=== PATIENT | female | born 1985 | race Caucasian/White ===

== ENCOUNTER → 2020-08-06 11:31 | Outpatient (BNV) | payer OTHER, SELFPAY | PROVIDERS: PCP Internal Medicine; Visit Provider Internal Medicine Medical Oncology | DX: D50.9 Iron deficiency anemia, unspecified (principal); N92.0 Excessive and frequent menstruation with regular cycle | CPT/HCPCS: 99212; 99213; 99214 ==

== ENCOUNTER 2021-04-01 10:36 | Outpatient (REF) | payer OTHER, SELFPAY ==
[2021-04-01 10:56] LABS: Hematocrit 26.7 % (37-47); Hemoglobin 7.9 g/dl (12.0-16.0); Mean Corpuscular HGB Conc 29.6 g/dl (31.0-35.0); Mean Corpuscular Hemoglobin 23.4 pg (27.0-33.0); Mean Platelet Volume 9.2 fL (9.4-12.3); Platelet Count 327 X10*3/uL (160-400); Red Blood Count 3.38 X10*6/uL (4.20-5.50); Red Cell Distribution Width 14.6 % (11.0-16.0); White Blood Count 5.7 X10*3/uL (4.8-10.8)
[2021-04-01 11:23] LABS: Alanine Aminotransferase 12 U/L (0-31); Albumin Level 4.4 g/dL (3.5-5.0); Alkaline Phosphatase 58 U/L (39-117); Anion Gap 12 (12-20); Aspartate Amino Transferase 13 U/L (5-31); Bilirubin Total 0.2 mg/dL (0.0-1.0); Blood Urea Nitrogen 10 mg/dL (9-16); Calcium 9.3 mg/dL (8.4-10.2); Carbon Dioxide 24 mmol/L (22-29); Chloride 107 mmol/L (96-108); Estimated Glomerular Filt Rate > 60; Glucose Random 91 mg/dL (60-115); Iron 11 mcg/dL (30-160); Potassium 4.1 mmol/L (3.3-5.1); Sodium 139 mmol/L (135-145); Total Protein 7.1 g/dL (6.5-8.0)
[2021-04-01 11:34] LABS: Percent Iron Saturation 3 % (15-50); Total Iron Binding Capacity 433 mcg/dL (228-428); Unsaturated Iron Binding 422 ug/dL
[2021-04-01 11:41] LABS: Ferritin < 1 ng/mL (10-122)
== END 2021-04-01 10:37 | disposition home or self-care (01) ==
LOC: HO.LAB 10:36
PROVIDERS: PCP Internal Medicine; Visit Provider Internal Medicine Medical Oncology
DX: D50.9 Iron deficiency anemia, unspecified (principal)
CPT/HCPCS: 36415; 80053; 82728; 83540; 85027

== ENCOUNTER 2021-04-12 10:47 | Outpatient (REF) | payer OTHER, SELFPAY | END 2021-04-12 10:48 | disposition home or self-care (01) | LOC: HO.MDS 10:47 | PROVIDERS: PCP Internal Medicine; Visit Provider Internal Medicine Medical Oncology | DX: D50.9 Iron deficiency anemia, unspecified (principal) | CPT/HCPCS: 96365; J2916; Q0163 ==

== ENCOUNTER 2021-04-12 13:27 | Emergency (ER) | payer OTHER, SELFPAY | END 2021-04-12 18:34 | disposition left against medical advice (07) | PROVIDERS: Emergency Provider Emergency Medicine | DX: M79.604 Pain in right leg (principal); M79.605 Pain in left leg; M79.642 Pain in left hand; M79.641 Pain in right hand ==

== ENCOUNTER 2021-04-28 | Outpatient (REF) | payer OTHER, SELFPAY | END 2021-04-28 00:01 | disposition home or self-care (01) | LOC: HO.MDS | PROVIDERS: Visit Provider Internal Medicine Medical Oncology | DX: Z53.09 Procedure and treatment not carried out because of other contraindication (principal); D50.9 Iron deficiency anemia, unspecified | CPT/HCPCS: J1439 ==

== ENCOUNTER 2021-05-24 07:57 | Outpatient (REF) | payer OTHER, SELFPAY | END 2021-05-24 07:58 | disposition home or self-care (01) | LOC: HO.MDS 07:57 | PROVIDERS: Visit Provider Internal Medicine Medical Oncology | DX: D50.9 Iron deficiency anemia, unspecified (principal) | CPT/HCPCS: 96365; 96366; J1200; J1750; Q0163 ==

== ENCOUNTER 2022-11-29 12:24 | Outpatient (REF) | payer OTHER, SELFPAY | END 2022-11-29 12:25 | disposition home or self-care (01) | LOC: HO.MDS 12:24 | PROVIDERS: PCP Internal Medicine; Visit Provider Internal Medicine Medical Oncology | DX: D50.9 Iron deficiency anemia, unspecified (principal) | CPT/HCPCS: 96365; J1756 ==

== ENCOUNTER 2022-12-06 10:11 | Outpatient (REF) | payer OTHER, SELFPAY | END 2022-12-06 10:12 | disposition home or self-care (01) | LOC: HO.MDS 10:11 | PROVIDERS: Visit Provider Internal Medicine Medical Oncology | DX: D50.9 Iron deficiency anemia, unspecified (principal) | CPT/HCPCS: 96365; J1756 ==

== ENCOUNTER 2022-12-13 09:26 | Outpatient (REF) | payer OTHER, SELFPAY | END 2022-12-13 09:27 | disposition home or self-care (01) | LOC: HO.MDS 09:26 | PROVIDERS: Visit Provider Internal Medicine Medical Oncology | DX: D50.9 Iron deficiency anemia, unspecified (principal) | CPT/HCPCS: 96365; J1756 ==

== ENCOUNTER 2022-12-20 08:59 | Outpatient (REF) | payer OTHER, SELFPAY ==
[2022-12-20 09:47] LABS: MANUAL DIFF FLAG NO
[2022-12-20 09:48] LABS: Basophils Absolute Auto 0.1 X10*3/uL (0.0-0.2); Basophils Percent Auto 0.8 % (0-2); Eosinophils Absolute Auto 0.2 X10*3/uL (0.0-0.4); Eosinophils Percent Auto 2.5 % (0-4); Hematocrit 34.5 % (37.0-47.0); Hemoglobin 10.8 g/dl (12.0-16.0); Imm Gran Abs Auto 0.02 X10*3/uL (0.00-0.03); Imm Gran Pct Auto 0.3 % (0.0-0.4); Lymphocytes Absolute Auto 1.5 X10*3/uL (1.2-4.9); Lymphocytes Percent Auto 25.5 % (20-40); Mean Corpuscular HGB Conc 31.3 g/dl (31.0-35.0); Mean Corpuscular Hemoglobin 25.5 pg (27.0-33.0); Mean Corpuscular Volume 81.4 fL (80.0-98.0); Mean Platelet Volume 9.8 fL (9.4-12.3); Monocytes Absolute Auto 0.3 X10*3/uL (0.1-1.2); Monocytes Percent Auto 5.1 % (2-11); Neutrophils Percent Auto 65.8 % (45-73); Platelet Count 307 X10*3/uL (160-400); Red Blood Count 4.24 X10*6/uL (4.20-5.50); Red Cell Distribution Width 19.3 % (11.0-16.0); White Blood Count 6.1 X10*3/uL (4.8-10.8)
[2022-12-20 10:20] LABS: Ferritin 129 ng/mL (10-122)
== END 2022-12-20 09:00 | disposition home or self-care (01) ==
LOC: HO.MDS 08:59
PROVIDERS: Visit Provider Internal Medicine Medical Oncology
DX: D50.9 Iron deficiency anemia, unspecified (principal)
CPT/HCPCS: 36415; 82728; 85025; 96365; J1756

== ENCOUNTER 2022-12-27 09:02 | Outpatient (REF) | payer OTHER, SELFPAY | END 2022-12-27 09:03 | disposition home or self-care (01) | LOC: HO.MDS 09:02 | PROVIDERS: Visit Provider Internal Medicine Medical Oncology | DX: D50.9 Iron deficiency anemia, unspecified (principal) | CPT/HCPCS: 96365; J1756 ==

== ENCOUNTER 2023-01-03 08:58 | Outpatient (REF) | payer OTHER, SELFPAY | END 2023-01-03 08:59 | disposition home or self-care (01) | LOC: HO.MDS 08:58 | PROVIDERS: Visit Provider Internal Medicine Medical Oncology | DX: D50.9 Iron deficiency anemia, unspecified (principal) | CPT/HCPCS: 96365; J1756 ==

== ENCOUNTER 2023-01-11 09:01 | Outpatient (REF) | payer OTHER, SELFPAY | END 2023-01-11 09:02 | disposition home or self-care (01) | LOC: HO.MDS 09:01 | PROVIDERS: Visit Provider Internal Medicine Medical Oncology | DX: D50.9 Iron deficiency anemia, unspecified (principal) | CPT/HCPCS: 96365; J1756 ==

== ENCOUNTER 2023-01-18 09:25 | Outpatient (REF) | payer OTHER, SELFPAY ==
[2023-01-18 10:05] LABS: MANUAL DIFF FLAG NO
[2023-01-18 10:09] LABS: Basophils Percent Auto 0.5 % (0-2); Eosinophils Absolute Auto 0.1 X10*3/uL (0.0-0.4); Eosinophils Percent Auto 2.5 % (0-4); Hemoglobin 11.7 g/dl (12.0-16.0); Imm Gran Abs Auto 0.02 X10*3/uL (0.00-0.03); Imm Gran Pct Auto 0.4 % (0.0-0.4); Lymphocytes Absolute Auto 1.4 X10*3/uL (1.2-4.9); Lymphocytes Percent Auto 25.6 % (20-40); Mean Corpuscular HGB Conc 31.6 g/dl (31.0-35.0); Mean Corpuscular Hemoglobin 27.1 pg (27.0-33.0); Mean Corpuscular Volume 85.8 fL (80.0-98.0); Mean Platelet Volume 9.2 fL (9.4-12.3); Monocytes Absolute Auto 0.3 X10*3/uL (0.1-1.2); Monocytes Percent Auto 5.8 % (2-11); Neutrophils Absolute Auto 3.6 x10*3/uL (2.0-8.3); Neutrophils Percent Auto 65.2 % (45-73); Platelet Count 241 X10*3/uL (160-400); Red Blood Count 4.31 X10*6/uL (4.20-5.50); Red Cell Distribution Width 18.6 % (11.0-16.0); White Blood Count 5.6 X10*3/uL (4.8-10.8)
[2023-01-18 10:43] LABS: Ferritin 408 ng/mL (10-122)
== END 2023-01-18 09:26 | disposition home or self-care (01) ==
LOC: HO.MDS 09:25
PROVIDERS: Visit Provider Internal Medicine Medical Oncology
DX: D50.9 Iron deficiency anemia, unspecified (principal)
CPT/HCPCS: 36415; 82728; 85025; 96365; J1756

== ENCOUNTER 2023-10-26 07:56 | Outpatient (REF) | payer OTHER, SELFPAY ==
[2023-10-26 07:59] VITALS: BP 96/59; PULSE 74; RESP 16; TEMP 36.6; O2SAT 100
[2023-10-26] MEDS: Iron Sucrose Complex 200 MG in 0.9 % Sodium Chloride 100 ML 440 MG IV (08:05)
== END 2023-10-26 07:57 | disposition home or self-care (01) ==
LOC: HO.MDS 07:56
PROVIDERS: Visit Provider Internal Medicine Medical Oncology
DX: D50.9 Iron deficiency anemia, unspecified (principal)
CPT/HCPCS: 96365; J1756

== ENCOUNTER 2023-11-06 14:25 | Outpatient (REF) | payer OTHER, SELFPAY ==
[2023-11-06 14:32] VITALS: BP 96/54; PULSE 74; RESP 16; TEMP 37.1; O2SAT 100
[2023-11-06] MEDS: Iron Sucrose Complex 200 MG in 0.9 % Sodium Chloride 100 ML 440 MG IV (14:36)
== END 2023-11-06 14:26 | disposition home or self-care (01) ==
LOC: HO.MDS 14:25
PROVIDERS: Visit Provider Internal Medicine Medical Oncology
DX: D50.9 Iron deficiency anemia, unspecified (principal)
CPT/HCPCS: 96374; J1756

== ENCOUNTER 2023-11-13 14:25 | Outpatient (REF) | payer OTHER, SELFPAY ==
[2023-11-13 14:30] VITALS: BP 105/62; PULSE 79; RESP 16; TEMP 36.6; O2SAT 100
[2023-11-13] MEDS: Iron Sucrose Complex 200 MG in 0.9 % Sodium Chloride 100 ML 440 MG IV (14:37)
== END 2023-11-13 14:26 | disposition home or self-care (01) ==
LOC: HO.MDS 14:25
PROVIDERS: Visit Provider Internal Medicine Medical Oncology
DX: D50.9 Iron deficiency anemia, unspecified (principal)
CPT/HCPCS: 96365; J1756

== ENCOUNTER 2023-12-18 14:30 | Outpatient (RCR) | payer OTHER, SELFPAY ==
[2023-11-20 14:27] VITALS: BP 98/58; PULSE 90; RESP 16; TEMP 36.6; O2SAT 100
[2023-11-20] MEDS: Iron Sucrose Complex 200 MG in 0.9 % Sodium Chloride 100 ML 440 MG IV (15:11)
--- NOTE | 2023-11-20 15:32 | HO.INF ---
13;30PM- LAB CALLED, ON UNIT AND BLOOD DRAWN ORDERED.
[2023-11-20 15:58] LABS: MANUAL DIFF FLAG NO
[2023-11-20 16:00] LABS: Basophils Percent Auto 0.4 % (0-2); Eosinophils Absolute Auto 0.1 X10*3/uL (0.0-0.4); Eosinophils Percent Auto 1.8 % (0-4); Hematocrit 30.5 % (37.0-47.0); Imm Gran Abs Auto 0.03 X10*3/uL (0.00-0.03); Imm Gran Pct Auto 0.4 % (0.0-0.4); Lymphocytes Absolute Auto 1.3 X10*3/uL (1.2-4.9); Lymphocytes Percent Auto 18.9 % (20-40); Mean Corpuscular HGB Conc 32.8 g/dl (31.0-35.0); Mean Corpuscular Hemoglobin 27.8 pg (27.0-33.0); Mean Corpuscular Volume 84.7 fL (80.0-98.0); Mean Platelet Volume 9.5 fL (9.4-12.3); Monocytes Absolute Auto 0.4 X10*3/uL (0.1-1.2); Monocytes Percent Auto 6.3 % (2-11); Neutrophils Absolute Auto 4.8 x10*3/uL (2.0-8.3); Neutrophils Percent Auto 72.2 % (45-73); Platelet Count 309 X10*3/uL (160-400); Red Cell Distribution Width 15.6 % (11.0-16.0); White Blood Count 6.7 X10*3/uL (4.8-10.8)
[2023-11-20 16:39] LABS: Ferritin 151 ng/mL (10-122)
[2023-11-27 14:33] VITALS: BP 97/65; PULSE 85; RESP 16; TEMP 36.6; O2SAT 99
[2023-11-27] MEDS: Iron Sucrose Complex 200 MG in 0.9 % Sodium Chloride 100 ML 440 MG IV (14:41)
[2023-12-05 14:33] VITALS: BP 104/61; PULSE 82; RESP 16; TEMP 36.6; O2SAT 99
[2023-12-05] MEDS: Iron Sucrose Complex 200 MG in 0.9 % Sodium Chloride 100 ML 440 MG IV (14:38)
[2023-12-11 14:36] VITALS: BP 98/62; PULSE 80; RESP 16; TEMP 36.6; O2SAT 98
[2023-12-11] MEDS: Iron Sucrose Complex 200 MG in 0.9 % Sodium Chloride 100 ML 440 MG IV (14:55)
[2023-12-11] MEDS: 0.9 % Sodium Chloride Flush 10 ML SYRINGE 5 ML IVFLUSH (14:56)
[2023-12-18 14:34] VITALS: BP 96/58; PULSE 88; RESP 16; TEMP 37.3; O2SAT 100
[2023-12-18] MEDS: Iron Sucrose Complex 200 MG in 0.9 % Sodium Chloride 100 ML 440 MG IV (14:43)
[2023-12-18 15:11] LABS: MANUAL DIFF FLAG NO
[2023-12-18 15:14] LABS: Basophils Percent Auto 0.4 % (0-2); Eosinophils Absolute Auto 0.2 X10*3/uL (0.0-0.4); Eosinophils Percent Auto 2.7 % (0-4); Hemoglobin 10.8 g/dl (12.0-16.0); Imm Gran Abs Auto 0.03 X10*3/uL (0.00-0.03); Imm Gran Pct Auto 0.4 % (0.0-0.4); Lymphocytes Absolute Auto 1.4 X10*3/uL (1.2-4.9); Lymphocytes Percent Auto 19.1 % (20-40); Mean Corpuscular HGB Conc 32.7 g/dl (31.0-35.0); Mean Corpuscular Hemoglobin 28.8 pg (27.0-33.0); Monocytes Absolute Auto 0.4 X10*3/uL (0.1-1.2); Monocytes Percent Auto 4.9 % (2-11); Neutrophils Absolute Auto 5.4 x10*3/uL (2.0-8.3); Neutrophils Percent Auto 72.5 % (45-73); Platelet Count 272 X10*3/uL (160-400); Red Blood Count 3.75 X10*6/uL (4.20-5.50); Red Cell Distribution Width 16.1 % (11.0-16.0); White Blood Count 7.5 X10*3/uL (4.8-10.8)
[2023-12-18 15:46] LABS: Ferritin 364 ng/mL (10-122)
== END 2023-12-18 15:10 | disposition home or self-care (01) ==
LOC: HO.INF 14:30
PROVIDERS: Visit Provider Internal Medicine Medical Oncology
DX: D50.9 Iron deficiency anemia, unspecified (principal)
CPT/HCPCS: 36415; 82728; 85025; 96374; J1756

== ENCOUNTER 2025-06-16 15:00 | Outpatient (RCR) | payer OTHER, SELFPAY ==
[2025-05-01 11:29] VITALS: BP 105/58; PULSE 76; RESP 16; TEMP 36.6; O2SAT 100
[2025-05-05 14:46] VITALS: BP 94/47; PULSE 81; RESP 16; TEMP 36.7; O2SAT 100
[2025-05-12 14:43] VITALS: BP 100/51; PULSE 82; RESP 16; TEMP 36.6; O2SAT 100
[2025-05-19 14:42] VITALS: BP 97/58; PULSE 80; RESP 16; TEMP 36.8; O2SAT 99
[2025-05-19 15:38] LABS: Hematocrit 28.2 % (37.0-47.0); Hemoglobin 8.7 g/dl (12.0-16.0); Mean Corpuscular HGB Conc 30.9 g/dl (31.0-35.0); Mean Corpuscular Hemoglobin 24.4 pg (27.0-33.0); Mean Corpuscular Volume 79.0 fL (80.0-98.0); NRBC Abs Auto 0.000 X10*3/uL (0.0-0.012); NRBC Pct Auto 0.0 /100WBC (0.0-0.2); Platelet Count 397 X10*3/uL (160-400); Red Blood Count 3.57 X10*6/uL (4.20-5.50); White Blood Count 7.8 X10*3/uL (4.8-10.8)
[2025-05-19 16:54] LABS: Ferritin 127 ng/mL (10-250)
[2025-05-26 14:52] VITALS: BP 88/59; PULSE 71; RESP 16; TEMP 36.7; O2SAT 98
[2025-06-03 14:48] VITALS: BP 94/41; PULSE 75; RESP 18; TEMP 36.6
[2025-06-09 14:24] VITALS: BP 90/40; PULSE 84; RESP 16; TEMP 36.6; O2SAT 100
[2025-06-16 14:32] VITALS: BP 99/60; PULSE 70; RESP 16; TEMP 36.7; O2SAT 99
[2025-06-16 14:46] LABS: Hematocrit 33.0 % (37.0-47.0); Hemoglobin 10.4 g/dl (12.0-16.0); Mean Corpuscular HGB Conc 31.5 g/dl (31.0-35.0); Mean Corpuscular Hemoglobin 26.5 pg (27.0-33.0); Mean Corpuscular Volume 84.0 fL (80.0-98.0); NRBC Abs Auto 0.000 X10*3/uL (0.0-0.012); NRBC Pct Auto 0.0 /100WBC (0.0-0.2); Platelet Count 309 X10*3/uL (160-400); Red Blood Count 3.93 X10*6/uL (4.20-5.50); White Blood Count 8.3 X10*3/uL (4.8-10.8)
[2025-06-16 15:21] LABS: Ferritin 338 ng/mL (10-250)
== END 2025-06-16 15:03 | disposition home or self-care (01) ==
LOC: HO.INF 15:00
PROVIDERS: Visit Provider Internal Medicine Medical Oncology
DX: D50.9 Iron deficiency anemia, unspecified (principal)
CPT/HCPCS: 36415; 82728; 85027; 96365; 96374; J1756